=== PATIENT | male | born 1935 | race Caucasian/White ===

== ENCOUNTER 2022-05-21 11:39 | Emergency (ER) | payer MEDICARE, OTHER, SELFPAY ==
[2022-05-21] VITALS (18 sets, daily range): BP systolic 131–138; BP diastolic 63–80; PULSE 75–93; RESP 9–24; TEMP 36.9–37.1; O2SAT 95–99
--- NOTE | 2022-05-21 11:45 | RT.EKG_ITS ---
APPROVED REPORT Exam: Resting ECG Reason for Exam: SOB Patient Location: E HR:88 bpm ECG Measurements Heart Rate 88 AXIS [place] 183 P 51 QRSd 84 QRS 52 QT 335 T 42 QTc 406 Conclusion Sinus rhythm...normal P axis, V-rate 60- 99. Sinus. Normal axis. No STEMI. Artifact V5. I have reviewed and interpreted ECG and agree with software generated interpretation.
--- NOTE | 2022-05-21 12:45 | DI.RAD_ITS ---
Exam(s) XR PORTABLE CHEST AP EXAM: XR PORTABLE CHEST AP CLINICAL HISTORY: cough. TECHNIQUE: 2D digital imaging was performed. COMPARISON: No exams were available for comparison FINDINGS: Single AP portable view. Heart size is upper normal. The mediastinum is not widened. No infiltrates nor pleural effusions. Very subtle suggestion of possible small pneumothorax in the l eft lung base. No fractures. IMPRESSION: Subtle suggestion of possible very subtle left pneumothorax. Recommend nonportable single PA view as next step. DATA REPOSITORY: RADIATION DOSE DELIVERED: All CT scans at this facility use at least one of these dose optimization techniques: automated exposure control; mA and/or kV adjustment per patient size (includes targeted e xams where dose is matched to clinical indication); or iterative reconstruction.
--- NOTE | 2022-05-21 12:58 | NUR.NOTE ---
Nursing Note: PT INFO GIVEN TO CARE MANAGEMENT TO ESTABLISH CARE NEXT WEEK. JAYLENE, ED
--- NOTE | 2022-05-21 13:03 | W.ED.GENAD ---
Discharge Plan Disposition Patient Disposition: HOME Condition: Stable Discharge Details Clinical Impression: COVID-19 Primary Care Provider: Shantell,Local ED Provider: Tremaine Peraza Home Meds and New Rx's Prescriptions: Continued atorvastatin 10 mg Tablet 10 mg PO DAILY bisoprolol-hydrochlorothiazide 2.5-6.25 mg Tablet 1 tab PO DAILY finasteride 1 mg Tablet 1 mg PO DAILY Discharge Instructions Instructions: COVID-19 (Coronavirus Disease 2019) (ED) Additional Instructions: Paxlovid as directed. Do not take your atorvastatin while taking this medication, you may begin taking your atorvastatin again on the , 3 days after this medication ends. Please watch for new or worsening symptoms and return to the ER for any concerns. I have placed you on the care management list to help expedite outpatient primary care follow-up. Discharge Data Discharge Date/Time-TO BE ENTERED AT DEPARTURE: 05/21/22 15:25 Medical Decision Making This is an 86-year-old gentleman past with a history of hypertension, hyperlipidemia, presenting to the ER today for 3-day history of flulike symptoms. Clinically he appears well, nontoxic. Partner at home has similar symptoms that began 2 days prior. He reports chest heaviness yesterday but no pain or shortness of breath. Denies any cardiac history. While I do believe this likely to be COVID, flu, viral syndrome, etc. I will obtain routine screening laboratory values including a single EKG and troponin. Given the duration of his symptoms I do not believe that a delta troponin is necessary. Laboratory values reveal no evidence of leukocytosis. Electrolytes unremarkable, creatinine 0.8 with a GFR greater than 60. COVID positive. Discussed Paxlovid with patient and he would like to move forward. Ordered the medication and the pharmacy will review medication interactions. Portable portable chest x-ray read as no infiltrate or effusion but concern for potential pneumothorax, recommend additional films 2 view chest x-ray read as unremarkable. Clinically extremely suspicion for pneumothorax. Pharmacy called and stated that the patient should hold the atorvastatin for 3 days after he finishes his Paxlovid. Discussed this with patient. Will place the patient on the care management with help expedite local primary care provider as he is moving to the area. Standard discharge and return precautions were provided. Patient understands, is agreeable to this plan, and has no additional questions or concerns upon discharge. This documentation was generated using Dragon dictation system, please disregard any oddities of phrase or misspellings. Imaging Data Radiologic Study: Attestation: I personally reviewed and interpreted this imaging study as follows: Imaging: X-Ray Radiologist's impression: Exam(s) XR PORTABLE CHEST AP EXAM: XR PORTABLE CHEST AP CLINICAL HISTORY: cough. TECHNIQUE: 2D digital imaging was performed. COMPARISON: No exams were available for comparison FINDINGS: Single AP portable view. Heart size is upper normal. The mediastinum is not widened. No infiltrates nor pleural effusions. Very subtle suggestion of possible small pneumothorax in the left lung base. No fractures. IMPRESSION: Subtle suggestion of possible very subtle left pneumothorax. Recommend nonportable single PA view as next step. Radiologic Study #2: Attestation: I personally reviewed and interpreted this imaging study as follows: Imaging: X-Ray Radiologist's impression: Exam(s) XR CHEST 2V PA LATERAL EXAM: XR CHEST 2V PA LATERAL CLINICAL HISTORY: Covid +, ? pnuemothorax on portable. TECHNIQUE: 2D digital imaging was performed. COMPARISON: CR XR PORTABLE CHEST AP from 05/21/2022 FINDINGS: 2 views: Heart size is normal. The mediastinum is not widened. No infiltrates nor pleural effusions and there is no pneumothorax on this non portable view. Density in the right lung base is probably breast nipple. IMPRESSION: No acute pulmonary findings. Lab Data Lab results reviewed: Yes I reviewed the patient's lab results. Labs: Laboratory Tests Range/Units 05/21/22 05/21/22 05/21/22 12:33 13:05 13:05 WBC (4.4-10.8) 10^3/uL 5.98 RBC (4.36-5.78) 10^6/uL 4.11 L Hgb (13.5-17.5) g/dL 13.4 L Hct (40.0-50.0) % 39.4 L MCV (80-95) fL 96 H MCH (27.0-33.0) pg 32.6 MCHC (32.0-36.0) % 34.0 RDW (11.8-14.1) % 12.8 Plt Count (130-400) 10^3/uL 162 MPV (8.0-11.0) fL 9.5 Immature Gran % 0.2 Neutrophils % 73.7 Lymphocytes % 9.9 Monocytes % 15.9 Eosinophils % 0.0 Basophils % 0.3 Nucleated RBC % (0.0-0.3) % 0.0 Absolute Neutrophils (1.2-6.7) 10^3/uL 4.41 Absolute Lymphocytes (1.2-3.4) 10^3/uL 0.59 L Absolute Monocytes (0.1-0.8) 10^3/uL 0.95 H Absolute Eosinophils (0.0-0.7) 10^3/uL 0.00 Absolute Basophils (0.0-0.2) 10^3/uL 0.02 Sodium (136-145) mmol/L 136 Potassium (3.5-5.1) mmol/L 3.7 Chloride (98-107) mmol/L 100 Carbon Dioxide (21.0-32.0) mmol/L 27.0 Anion Gap (3-11) mmol/L 9.0 BUN (7-18) mg/dL 21 H Creatinine (0.70-1.30) mg/dL 0.8 Estimated GFR/1.73 m2 (mL/min/1.73m2) >= 60.00 Glucose (74-106) mg/dL 108 H Calcium (8.5-10.1) mg/dL 9.5 Magnesium (1.8-2.4) mg/dL 1.8 Total Bilirubin (0.2-1.0) mg/dL 1.7 H AST (15-37) U/L 32 ALT (16-63) U/L 31 Alkaline Phosphatase (46-116) U/L 57 Troponin I (<or=60) ng/L < 50 Total Protein (6.4-8.2) g/dL 8.0 Albumin (3.4-5.0) g/dL 3.9 COVID-19 Source Not Applicable SARS-CoV-2 (PCR) (Negative) Positive A Influenza Type A (PCR) (Negative) Negative Influenza Type B (PCR) (Negative) Negative RSV (PCR) (Negative) Negative ECG Data Attestation: I personally reviewed and interpreted this ECG (s) as follows: Interpretation: Please see official report by Dr. Mcintosh. Sinus rhythm, ventricular rate of 88, no STEMI HPI General Mode of arrival: ambulatory. Date/Time Provider Initiated Documentation: 05/21/22 11:50. Limitations to Documentation: no limitations. Information obtained by: patient. HPI Narrative: This is an 86-year-old gentleman with a past medical history of hyperlipidemia, hypertension, relocating here with his partner from [place], presenting to the ER for 3-day history of dry cough, fatigue, body aches, reports he had a mild chest heaviness yesterday but no chest pain or shortness of breath. He states that he is fully immunized. He has not taken any [id number] medications for his symptoms. He denies headache, productive cough, abdominal pain, nausea or vomiting. Reports episode of diarrhea yesterday. Denies pain or swelling in his legs. He reports that his partner has somewhat similar symptoms, is also being evaluated, his partners symptoms began 2 days prior to his own symptoms. Related Data Home Medications Medication Instructions Recorded Confirmed atorvastatin 10 mg tablet 10 mg PO DAILY 05/21/22 05/21/22 bisoprolol 2.5 1 tab PO DAILY 05/21/22 05/21/22 mg-hydrochlorothiazide 6.25 mg tablet finasteride 1 mg tablet 1 mg PO DAILY 05/21/22 05/21/22 Allergies Allergy/AdvReac Type Severity Reaction Status Date / Time No Known Allergies Allergy Unverified 05/21/22 11:58 General Stated Complaint: GenMedical DEBBIE: 3 Review of Systems Constitutional Constitutional: Reports fatigue, Denies fever(s) and Denies headache(s) ENT Ears, Nose, Mouth, and Throat: Denies headache(s) and Denies sore throat Cardiovascular Cardiovascular: Denies chest pain and Denies dyspnea Respiratory Respiratory: Reports cough and Denies dyspnea Gastrointestinal Gastrointestinal: Denies abdominal pain, Reports diarrhea, Denies nausea and Denies vomiting Musculoskeletal Musculoskeletal: Reports myalgias Integumentary/Breasts Skin/Breast: Denies rash Neurologic Neurologic: Denies headache(s) Endocrine Endocrine: Reports fatigue PFSH All Active Problems COVID-19 (Acute) Social History Smoking/Tobacco Use Status: Never Smoking risk assessment performed?: Yes Alcohol Intake: current Alcohol Intake frequency: holidays/special occasions only Drug use: Never Substance use type: does not use Do you feel safe at home: Yes Do you feel safe in your relationship?: Yes Exam Const General: cooperative, healthy appearing, comfortable and no acute distress Orientation: alert and awake [facility] Head: normal to inspection, normocephalic and atraumatic Face and sinus: normal facial exam Mouth: moist mucous membranes Throat: posterior oropharynx normal Eyes General: appearance normal, both eyes and all related structures Conjunctivae: conjunctivae normal Neck Neck: normal visual inspection, full ROM, no meningeal signs, trachea midline and supple Resp Effort & Inspection: normal respiratory effort, able to speak in complete sentences and cough Quality of cough: dry (mild) Auscultation: clear to auscultation bilaterally Cardio Rate: regular rate Rhythm: regular rhythm GI Palpation: soft and nontender Back/Spine/Pelvis Back: No back tenderness Skin General skin exam: no rashes or lesions noted Neuro General: patient alert, patient awake, moves all extremities and no focal motor deficits Cognition: normal cognition Speech: speech normal Gait: normal gait Motor: muscle tone normal throughout Sensory Exam: no sensory deficits noted Extrem General: normal to inspection, full ROM, capillary refill normal, no pedal edema and no calf tenderness Psych Appearance: grossly normal Mental Status: mental status grossly normal Course Vital Signs Vital signs: Vital Signs Temperature 36.9 C 05/21/22 11:45 Pulse 77 05/21/22 11:45 Respiratory Rate 18 05/21/22 11:45 Blood Pressure 131/80 05/21/22 11:45 Pulse Oximetry 99 05/21/22 11:45 Temperature 37.1 C 05/21/22 12:51 Temperature Source Oral 05/21/22 12:51 Pulse 77 05/21/22 11:45 Respiratory Rate 18 05/21/22 11:45 Respiratory Effort Non-Labored 05/21/22 12:26 Respiratory Depth Normal 05/21/22 12:26 Respiratory Pattern Normal 05/21/22 12:26 Blood Pressure 131/80 05/21/22 11:45 Blood Pressure Position Sitting 05/21/22 11:45 Pulse Oximetry 99 05/21/22 11:45 Oxygen Delivery Method Room Air 05/21/22 11:45 Oxygen Flow Rate 0 05/21/22 11:45
[2022-05-21 13:15] LABS: Abs Immature Grans 0.01 10^3/uL (0.0-0.06); Absolute Basophil Count 0.02 10^3/uL (0.0-0.2); Absolute Lymphocyte Count 0.59 10^3/uL (1.2-3.4); Absolute Monocyte Count 0.95 10^3/uL (0.1-0.8); Absolute Neutrophil Count 4.41 10^3/uL (1.2-6.7); Basophils % 0.3; HCT 39.4 % (40.0-50.0); HGB 13.4 g/dL (13.5-17.5); Immature Grans % 0.2; Lymphocytes % 9.9; MCH 32.6 pg (27.0-33.0); MCV 96 fL (80-95); MPV 9.5 fL (8.0-11.0); Monocytes % 15.9; Neutrophils % 73.7; Platelet Count 162 10^3/uL (130-400); RBC 4.11 10^6/uL (4.36-5.78); RDW 12.8 % (11.8-14.1); RDW-SD 45.3 fL; WBC 5.98 10^3/uL (4.4-10.8)
[2022-05-21 13:22] LABS: Influenza A PCR Negative (Negative); Influenza B PCR Negative (Negative); RSV PCR Negative (Negative)
[2022-05-21 13:25] LABS: COVID-19 PCR Positive (Negative)
[2022-05-21 13:33] LABS: ALT 31 U/L (16-63); AST 32 U/L (15-37); Albumin 3.9 g/dL (3.4-5.0); Alkaline Phosphatase 57 U/L (46-116); BUN 21 mg/dL (7-18); Bilirubin, Total 1.7 mg/dL (0.2-1.0); CREATININE 0.8 mg/dL (0.70-1.30); Calcium 9.5 mg/dL (8.5-10.1); Chloride 100 mmol/L (98-107); Glucose 108 mg/dL (74-106); Magnesium 1.8 mg/dL (1.8-2.4); Potassium 3.7 mmol/L (3.5-5.1); Sodium 136 mmol/L (136-145); Troponin I < 50 ng/L (<or=60)
--- NOTE | 2022-05-21 14:15 | DI.RAD_ITS ---
Exam(s) XR CHEST 2V PA LATERAL EXAM: XR CHEST 2V PA LATERAL CLINICAL HISTORY: Covid +, ? pnuemothorax on portable. TECHNIQUE: 2D digital imaging was performed. COMPARISON: CR XR PORTABLE CHEST AP from 05/21/2022 FINDINGS: 2 views: Heart size is normal. The mediastinum is not widened. No infiltrates nor pleural effusions and there is no pneumothorax on this non portable view. Density in the right lung base is probably breast nipple. IMPRESSION: No acute pulmonary findings. DATA REPOSITORY: RADIATION DOSE DELIVERED:
--- NOTE | 2022-05-21 14:38 | NUR.NOTE ---
Gave pt. first dose of paxlovid, gave instructions to take evening dose later this night. Instructed pt. to not take Atorvastatin for 8 days. Nursing Note:
--- NOTE | 2022-05-22 10:57 | CMACTNOTE_ITS ---
- If Service Date Differs Date of service: 05/22/22 Time of Service: 10:57 Care Management Activity Note Sean is seen in the ED for Covid-19. At the request of ED provider, MARYBETH coordinates a referral to JAYLENE West, of [facility], on-call provider, to assist Sean in obtaining a follow up appointment and in establishing care with a local PCP. He has Medicare for insurance.
== END 2022-05-21 15:25 | disposition home or self-care (01) ==
PROVIDERS: Emergency Provider Physician Assistant
DX: U07.1 COVID-19 (principal); R06.02 Shortness of breath
CPT/HCPCS: 36415; 80053; 87637; 93005; 99283; 99284; 71045; 71046; 83735; 84484; 85025; 93010

== ENCOUNTER 2023-08-10 17:18 | Outpatient (REF) | payer MEDICARE, SELFPAY ==
[2023-08-10 19:06] LABS: ALT 45 U/L (16-63); AST 33 U/L (15-37); Albumin 4.2 g/dL (3.4-5.0); Alkaline Phosphatase 74 U/L (46-116); Anion Gap 10.3 mmol/L (3-11); BUN 27 mg/dL (7-18); Bilirubin, Total 1.2 mg/dL (0.2-1.0); CO2 27.7 mmol/L (21.0-32.0); Calcium 10.2 mg/dL (8.5-10.1); Calculated LDL 75 mg/dL (<100); Chloride 100 mmol/L (98-107); Cholesterol 173 mg/dL (<200); Glucose 146 mg/dL (74-106); HDL Cholesterol 54 mg/dL (40-60); Potassium 3.7 mmol/L (3.5-5.1); Sodium 138 mmol/L (136-145); Total Protein 8.4 g/dL (6.4-8.2); Triglyceride 220 mg/dL (<150)
== END 2023-08-10 17:19 | disposition home or self-care (01) ==
LOC: NCHCN 17:18
PROVIDERS: Visit Provider Physician Assistant Medical
DX: I10 Essential (primary) hypertension (principal); E78.5 Hyperlipidemia, unspecified; N40.0 Benign prostatic hyperplasia without lower urinary tract symptoms; Z12.5 Encounter for screening for malignant neoplasm of prostate
CPT/HCPCS: 80053; 80061; 84153

== ENCOUNTER 2023-11-30 13:38 | Emergency (ER) | payer MEDICARE, OTHER, SELFPAY ==
[2023-11-30] VITALS (42 sets, daily range): BP systolic 104–139; BP diastolic 40–77; PULSE 58–100; RESP 14–22; TEMP 36.4; O2SAT 96
--- NOTE | 2023-11-30 13:30 | RT.EKG_ITS ---
APPROVED REPORT Exam: Resting ECG Reason for Exam: unresponsive episode Patient Location: E HR:59 bpm ECG Measurements Heart Rate 59 AXIS [place] 228 P 22 QRSd 91 QRS 52 QT 400 T 53 QTc 396 Conclusion Sinus bradycardia...rate< 60 Prolonged FL interval...FL >220, V-rate 50- 90
--- NOTE | 2023-11-30 13:45 | DI.CT_ITS ---
Exam(s) CT HEAD - STROKE PROTOCOL EXAM: CT HEAD - STROKE PROTOCOL CLINICAL HISTORY: aphasia, dysarthria. TECHNIQUE: Imaging Protocol: Axial computed tomography images with coronal and sagittal reformatted images were created and reviewed COMPARISON: CR XR CHEST 2V PA LATERAL from 05/21/2022 FINDINGS: There are no skull fractures. There is a post inflammatory retention cyst in the posterior aspect of the right maxillary sinus and there is also mucosal thickening in the right sphenoid sinus. There is no evidence of intracranial hemorrhage, mass effect, or shift of midline structures. There are no extra-axial fluid collections. The ventricles are not enlarged or shifted and there is no blo od within the ventricular system nor within the basal cisterns. IMPRESSION: No acute intracranial findings on this noninfused CT scan of the brain. sinus disease as above. Called by myself to ER physician RADIATION DOSE DELIVERED: 807.43mGy.cm Total DLP DATA REPOSITORY: All CT scans at this facility are submitted to the National Radiology Data Registry (NRDR) Dose Index Registry (DIR) with the [employer] ([employer]). RADIATION OPTIMIZATION: All CT scans at this facility use at least one of these dose optimization te chniques: automated exposure control; mA and/or kV adjustment per patient size (includes targeted exa ms where dose is matched to clinical indication); or iterative reconstruction.
--- NOTE | 2023-11-30 14:01 | ED.GENADUL_ITS ---
HPI General Date/Time Provider Initiated Documentation: 11/30/23 13:46 . HPI Narrative: 88 year-old male presents to ED today by EMS with a chief complaint of possible altered mentation with onset around 1240. Patient became unresponsive while awake, had some fluttering eyes, and was having difficulty speaking with his , having word-salad type responses. Quality described as word salad, not acting himself, doesn't remember events, no radiation to chest pain, shortness of breath, fevers, nausea/vomiting/diarrhea, patient endorses no cardiac history- the patients states they did have a very emotional morning while having to euthanize their dog, and there was an unexpected in the family as well. Severity is described as unable to quantify. Palliating factors include nothing specific. Provoking factors include nothing specific. Patient not anticoagulated. Related Data Home Medications Medication Instructions Recorded Confirmed atorvastatin 10 mg tablet 10 mg PO DAILY 05/21/22 11/30/23 bisoprolol 2.5 1 tab PO DAILY 05/21/22 11/30/23 mg-hydrochlorothiazide 6.25 mg tablet finasteride 1 mg tablet 1 mg PO DAILY 05/21/22 11/30/23 Allergies Allergy/AdvReac Type Severity Reaction Status Date / Time No Known Allergies Allergy Unverified 11/30/23 13:58 General Stated Complaint: CVA/TIA DEBBIE: 2 Review of Systems All systems reviewed & are unremarkable except as noted in HPI and below PFSH All Active Problems (Updated 11/30/23 @ 15:57 by JOCELYNN Churchill) Cerebrovascular accident (Chronic) COVID-19 (Acute) Social History Smoking/Tobacco Use Status: Never Smoking risk assessment performed?: Yes Alcohol Intake: current Alcohol Intake frequency: holidays/special occasions only Drug use: Never Substance use type: does not use Do you feel safe at home: Yes Do you feel safe in your relationship?: Yes Exam Narrative Exam Narrative: GENERAL APPEARANCE: Well-nourished, non-toxic, awake and alert, atraumatic, no acute distress. SKIN: Warm, pink, dry, intact, without rashes/lesions/ulcerations. HEAD: Normocephalic, atraumatic, normal hair distribution for gender/age. EYES: Pupils PERRLA, EOMs intact without nystagmus, normal conjunctiva, no exudates on lids/lashes. ENT: Nares patent, no circumoral cyanosis, no facial swelling NECK: Supple, trachea midline, painless cervical ROM. LUNGS/CHEST: Lungs CTA bilaterally- no rhonchi/rales/wheezes diffusely, non- labored respirations, normal A/P diameter, symmetrical expansion, no chest wall deformity HEART (CV/PV): Regular rate and rhythm without murmur, no peripheral edema, no JVD, no carotid bruit. ABDOMEN: Soft, non-distended, no guarding, no tenderness. MSK: Normal ROM, no swelling/deformity to bilateral UEs or LEs, moving all extremities without weakness, no cyanosis, spine midline without tenderness, normal curvature. NEURO: Mental Status AAOx4 - alert to person, place, giving inappropriate responses identifying objects, following commands, some word-salad No facial droop, no forehead involvement, has dysmetria with finger-nose finger with L hand, has horizontal gaze palsy looking L with bilateral eyes, visual bucio intact Motor: No focal weakness - strength 5/5 in bilateral UEs and LEs, proximal and distal, symmetric. Sensory: sensation intact to light touch globally. Gait NT on arrival. NIH: 8 PSYCH: euthymic, cooperative, pleasant, appropriate speech Course Vital Signs Vital signs: Vital Signs Temperature 36.4 C L 11/30/23 13:40 Pulse 58 L 11/30/23 13:40 Respiratory Rate 15 11/30/23 13:40 Pulse Oximetry 96 11/30/23 13:40 Temperature 36.4 C L 11/30/23 13:40 Temperature Source Tympanic 11/30/23 13:40 Pulse 58 L 11/30/23 13:40 Respiratory Rate 15 11/30/23 13:40 Respiratory Effort Normal, Non-Labored 11/30/23 13:55 Blood Pressure Position Supine 11/30/23 13:40 Pulse Oximetry 96 11/30/23 13:40 Oxygen Delivery Method Room Air 11/30/23 13:40 Oxygen Flow Rate 0 11/30/23 13:40 Medical Decision Making This dictation utilizes [id number] dictation software and may contain unedited grammatical errors. 88 y/o M presents to ED today with a chief complaint of unresponsive but awake episode last known well at 1240 per patient's , had a very emotionally stressful morning. Having expressive aphasia and some ophthalmoplegia looking L horizontally, some dysmetria with L UE and inattention with tasks. Patient denies stroke history, denies cardiac history, no recent illnesses. Patients' medical history: Reports some unknown allergy that he has had to use EpiPen 3 times. Family and social history: lives at-home with , eats healthy. Pertinent exam findings / vital signs include NIH: 8, aphasia, inattention with tasks, some dysmetria L UE, benign cardiopulmonary status, benign abdomen, non- toxic. Differential / pathologies of concern include CVA, unlikely psychogenic episode or fugue statue from psychogenic stressors today, ICH. Diagnostic studies of: -CT Head wo Contrast ordered stat on arrival, CBC, CMP, Lipase, Lactate, CK, UA, UDS, Trop I, BNP, Ammonia, PT, PTT, lipase, magnesium, procalcitonin, TSH, CRP/ESR, EKG -EKG shows sinus bradycardia 59 bpm with P waves followed by narrow complex QRS, normal axis, poor R wave progression, likely early repolarization, normal QT QTc, prolonged LA interval -CT Head wo shows no ICH, ordering tPa for CVA -CTAs show no occlusive pathology. -CBC no leukocytosis, chronic anemia 13.2 Hgb -PTT 23.4 low, normal INR -Lactate 1.1 -PT shows no major electrolyte abnormalities, chronic bilirubin and BUN elevation at baseline -Ammonia level low -TSH elevated-FT4 wnl -UDS clean, UA shows no major signs of infection, micro is confirms Interventions of: -6.8mg bolus tPa administered at 1420 for likely stroke with NIH of 8. -remaining 61.8mg infusion started over 60 mins -patient improving with tPa, no more aphasia, NIH: 1 @ 1555 -Consulted [facility] [place] transfer, they state they may not be able to accept due to capacity -Page placed at [facility] as well ED Course/Assessment/Plan: 88-year-old male presents with a likely CVA with an NIH score of 8, his last known well was 1240, he received tPA at 1420 after confirming no intracranial hemorrhage with significant improvement of his NIH from 8-1, his labs showed no acute major abnormalities, I approached [facility] as well as [facility] neurology for transfer for stroke admission, patient was signed out to oncoming provider Tana Burch with callbacks pending for stroke admission. The likely onset of his stroke was around significant emotional stressors today including euthanasia of the family's dog as well as a in the family, vitals remaining stable after tPa administration. [facility] has no capacity for stroke admission. Patient signed out with pending [facility] Neuro consult for stroke admission to Ch[facility]. Disposition of Cerebrovascular Accident. Patient verbalized understanding of the plan and return to ED criteria and engaged in shared decision making. Medical Records Medical records reviewed: Yes I reviewed the patient's medical records. Imaging Data Radiologic Study: Imaging: CT Scan Radiologist's impression: EXAM: CT HEAD - STROKE PROTOCOL CLINICAL HISTORY: aphasia, dysarthria. TECHNIQUE: Imaging Protocol: Axial computed tomography images with coronal and sagittal reformatted images were created and reviewed COMPARISON: CR XR CHEST 2V PA LATERAL from 05/21/2022 FINDINGS: There are no skull fractures. There is a post inflammatory retention cyst in the posterior aspect of the right maxillary sinus and there is also mucosal thickening in the right sphenoid sinus. There is no evidence of intracranial hemorrhage, mass effect, or shift of midline structures. There are no extra-axial fluid collections. The ventricles are not enlarged or shifted and there is no blood within the ventricular system nor within the basal cisterns. IMPRESSION: No acute intracranial findings on this noninfused CT scan of the brain. sinus disease as above. Radiologic Study #2: Imaging: CT Scan Radiologist's impression: EXAM: CT BRAIN NECK CTA CLINICAL HISTORY: CVA, tPa already administered. TECHNIQUE: Imaging Protocol: Axial CT angiography was performed with multi- slice acquisition and multi-planar and/or 3D reconstructions. CONTRAST MATERIAL: Intravenous: Omnipaque 350 Contrast volume:structured data in ml COMPARISON: No exams were available for comparison FINDINGS: CTA Neck W: Aortic arch anatomy: The aortic arch anatomy is conventional and there is no significant stenosis at the origin of the great vessels off of the aortic arch. No intimal flap evident. Anterior circulation: Both common carotid arteries ascend with normal luminal diameters. There is no significant atherosclerotic disease at the right carotid bifurcation and proximal right ICA. There is mild calcified plaque on the lateral wall of the left carotid bifurcation and mild calcified plaque in the posterior wall of the proximal left ICA but without evidence of significant stenosis. The amount of narrowing is estimated at less than 10 percent. There is no dissection. Both internal carotid arteries are patent without stenosis in the upper neck and skull base. Posterior circulation: Both vertebral arteries originate in conventional fashion off of the subclavian arteries and there is no obvious stenosis at the origin of the vertebral arteries. Both vertebral arteries exhibit normal luminal diameters within the foramen transversarium. No evidence of intraluminal thrombus nor dissection of the vertebral arteries. Both vertebral arteries contribute to the formation of the basilar artery at the skull base. CTA Brain W: Anterior circulation: Both internal carotid arteries are patent in the skull base-carotid canals as well as within the cavernous sinuses. The supraclinoid aspects of the ICAs are patent. Both A1 segments are patent as are the anterior cerebral arteries and there is no evidence of aneurysm at the level of the anterior communicating artery. Both middle cerebral arteries are patent with no evidence of significant stenosis nor intraluminal thrombus. There also no aneurysms of these vessels. Posterior circulation: Basilar artery ascends in the midline with no evidence of significant stenosis nor dissection. Distally it gives off spit superior cerebellar arteries and above this level terminates as patent bilateral posterior cerebral arteries. Above this level the basilar artery terminates as patent bilateral posterior cerebral arteries. There is no evidence of aneurysm at the tip of the basilar artery nor elsewhere in the [id number]. CT BRAIN: There is no evidence of intracranial hemorrhage, mass effect, or shift of midline structures. There are no extra-axial fluid collections. Ventricles are not enlarged or shifted. There are no ring enhancing lesions in the brain and no abnormal meningeal enhancement. There is some periventricular hypodensity consistent with chronic small vessel disease. Also appears to be lacunar infarct in the anterior limb of the left internal capsule, nonhemorrhagic and age indeterminate. IMPRESSION: 1. Patent carotid arteries in the neck. No hemodynamically significant stenosis. Minimal calcified plaque at the left carotid bifurcation and proximal left ICA with less than 10 percent stenosis. 2. Patent vertebral arteries in the neck. 3. Patent intracranial arteries. No significant stenosis of the intracranial vessels nor intraluminal filling defects and there are no aneurysms evident. Also no evidence of vascular malformation. 4. There are no ring enhancing lesions in the brain and there is no abnormal meningeal enhancement. Lab Data Lab results reviewed: Yes I reviewed the patient's lab results. Labs: Laboratory Tests Range/Units 11/30/23 11/30/23 11/30/23 13:50 14:00 15:40 WBC (4.4-10.8) 10^3/uL 6.24 RBC (4.36-5.78) 10^6/uL 4.00 L Hgb (13.5-17.5) g/dL 13.2 L Hct (40.0-50.0) % 38.3 L MCV (80-95) fL 96 H MCH (27.0-33.0) pg 33.0 MCHC (32.0-36.0) % 34.5 RDW (11.8-14.1) % 11.9 Plt Count (130-400) 10^3/uL 202 MPV (8.0-11.0) fL 9.4 Immature Gran % 0.3 Neutrophils % 61.6 Lymphocytes % 25.2 Monocytes % 11.2 Eosinophils % 1.1 Basophils % 0.6 Nucleated RBC % (0.0-0.3) % 0.0 Absolute Neutrophils (1.2-6.7) 10^3/uL 3.84 Absolute Lymphocytes (1.2-3.4) 10^3/uL 1.57 Absolute Monocytes (0.1-0.8) 10^3/uL 0.70 Absolute Eosinophils (0.0-0.7) 10^3/uL 0.07 Absolute Basophils (0.0-0.2) 10^3/uL 0.04 ESR (0-20) mm/hr 8 PT (9.1-11.1) sec 10.4 INR (0.9-1.1) 1.0 APTT (23.6-32.8) sec 23.4 L VBG Lactate (0.6-1.4) mmol/L 1.1 Sodium (136-145) mmol/L 139 Potassium (3.5-5.1) mmol/L 3.9 Chloride (98-107) mmol/L 103 Carbon Dioxide (21.0-32.0) mmol/L 29.0 Anion Gap (3-11) mmol/L 7.0 BUN (7-18) mg/dL 22 H Creatinine (0.70-1.30) mg/dL 1.1 Est GFR (CKD-EPI 2020) (mL/min/1.73m2) 65.38 Glucose (74-106) mg/dL 144 H Calcium (8.5-10.1) mg/dL 9.6 Magnesium (1.8-2.4) mg/dL 1.9 Total Bilirubin (0.2-1.0) mg/dL 1.3 H AST (15-37) U/L 31 ALT (16-63) U/L 38 Alkaline Phosphatase (46-116) U/L 60 Ammonia (11-32) umol/L < 10 L Creatine Kinase (39-308) U/L 57 Troponin I (< or =60) ng/L < 50 C-Reactive Protein (0.0-0.3) mg/dL < 0.05 NT-Pro-B Natriuret Pep (<300) pg/mL 168 Total Protein (6.4-8.2) g/dL 7.7 Albumin (3.4-5.0) g/dL 3.8 Lipase (16-77) U/L 24 Procalcitonin ng/mL < 0.1 TSH (0.36-3.74) uIU/mL 5.36 H Free T4 (0.76-1.46) ng/dL 0.88 Urine Color (Yellow) Yellow Urine Clarity (Clear) Clear Urine pH (5-8) 6.0 Ur Specific Abbot (1.005-1.025) 1.010 Urine Protein (Negative) mg/dL 30 H Urine Ketones (Negative) mg/dL Negative Urine Blood (Negative) Negative Urine Nitrite (Negative) Negative Urine Bilirubin (Negative) Negative Urine Urobilinogen (Up to 0.2) mg/dL 0.2 Ur Leukocyte Esterase (Negative) Negative Urine RBC (0-2) HPF 0-2 Urine WBC (0-5) HPF Negative Ur Epithelial Cells (Negative) HPF Rare Urine Crystals (Negative) HPF Negative Urine Bacteria (Negative) HPF Negative Urine Mucus (Negative) Trace Ur Culture Indicated? No Urine Glucose (Negative) mg/dL Negative Urine Opiates Screen (Negative) Negative Urine Methadone Screen (Negative) Negative Ur Barbiturates Screen (Negative) Negative Ur Tricyclics Screen (Negative) Negative Ur Amphetamines Screen (Negative) Negative U Benzodiazepines Scrn (Negative) Negative Urine Cocaine Screen (Negative) Negative Ur THC Screen (Negative) Negative Quality:SDOH Health Related Social Needs: No Data to Display Discharge Plan Discharge Details Chief Complaint: CVA/TIA Clinical Impression: Cerebrovascular accident Primary Care Provider: Unknown,Unknown ED Provider: Rayo Cheney Home Meds and New Rx's Prescriptions: No Action atorvastatin 10 mg Tablet 10 mg PO DAILY bisoprolol-hydrochlorothiazide 2.5-6.25 mg Tablet 1 tab PO DAILY finasteride 1 mg Tablet 1 mg PO DAILY
[2023-11-30 14:08] LABS: Abs Immature Grans 0.02 10^3/uL (0.0-0.06); Absolute Basophil Count 0.04 10^3/uL (0.0-0.2); Absolute Eosinophil Count 0.07 10^3/uL (0.0-0.7); Absolute Lymphocyte Count 1.57 10^3/uL (1.2-3.4); Absolute Neutrophil Count 3.84 10^3/uL (1.2-6.7); Basophils % 0.6; Eosinophils % 1.1; HCT 38.3 % (40.0-50.0); HGB 13.2 g/dL (13.5-17.5); Immature Grans % 0.3; Lactate 1.1 mmol/L (0.6-1.4); Lymphocytes % 25.2; MCHC 34.5 % (32.0-36.0); MCV 96 fL (80-95); MPV 9.4 fL (8.0-11.0); Monocytes % 11.2; Neutrophils % 61.6; Platelet Count 202 10^3/uL (130-400); RDW 11.9 % (11.8-14.1); RDW-SD 41.9 fL; WBC 6.24 10^3/uL (4.4-10.8)
[2023-11-30 14:12] LABS: ESR 8 mm/hr (0-20)
--- NOTE | 2023-11-30 14:15 | DI.CT_ITS ---
Exam(s) CT BRAIN NECK CTA EXAM: CT BRAIN NECK CTA CLINICAL HISTORY: CVA, tPa already administered. TECHNIQUE: Imaging Protocol: Axial CT angiography was performed with multi-slice acquisition and mu lti-planar and/or 3D reconstructions. CONTRAST MATERIAL: Intravenous: Omnipaque 350 Contrast volume:structured data in ml COMPARISON: No exams were available for comparison FINDINGS: CTA Neck W: Aortic arch anatomy: The aortic arch anatomy is conventional and there is no significant stenosis at the origin of the great vessels off of the aortic arch. No intimal flap evident. Anterior circulation: Both common carotid arteries ascend with normal luminal diameters. There is no significant atherosclerotic disease at the right carotid bifurcation and proximal right I CA. There is mild calcified plaque on the lateral wall of the left carotid bifurcation and mild calcified plaque in the posterior wall of the proximal left ICA but without evidence of significant stenosis. The amount of narrowing is estimated at less than 10 percent. There is no dissection. Both interna l carotid arteries are patent without stenosis in the upper neck and skull base. Posterior circulation: Both vertebral arteries originate in conventional fashion off of the subclavian arteries and there is no obvious stenosis at the origin of the vertebral arteries. Both vertebral arteries exhibit normal luminal diameters within the foramen transversarium. No evidence of intraluminal thrombus nor dissection of the vertebral arteries. Both vertebral arteries contribute to the formation of the basilar artery at the skull base. CTA Brain W: Anterior circulation: Both internal carotid arteries are patent in the skull base-carotid canals as well as within the cave rnous sinuses. The supraclinoid aspects of the ICAs are patent. Both A1 segments are patent as are the anterior cer ebral arteries and there is no evidence of aneurysm at the level of the anterior communicating artery . Both middle cerebral arteries are patent with no evidence of significant stenosis nor intraluminal th rombus. There also no aneurysms of these vessels. Posterior circulation: Basilar artery ascends in the midline with no evidence of significant stenosis nor dissection. Dista lly it gives off spit superior cerebellar arteries and above this level terminates as patent bilatera l posterior cerebral arteries. Above this level the basilar artery terminates as patent bilateral posterior cerebral arteries. There is no evidence of aneurysm at the tip of the basilar artery nor elsewhere in the [id number] is. CT BRAIN: There is no evidence of intracranial hemorrhage, mass effect, or shift of midline structures. There are no extra-axial fluid collections. Ventricles are not enlarged or shifted. There are no ring enh ancing lesions in the brain and no abnormal meningeal enhancement. There is some periventricular hypodensity consistent with chronic small vessel disease. Also appears to be lacunar infarct in the anterior limb of the left internal capsule, nonhemorrhagic and age inde terminate. IMPRESSION: 1. Patent carotid arteries in the neck. No hemodynamically significant stenosis. Minimal calcified plaque at the left carotid bifurcation and proximal left ICA with less than 10 percent stenosis. 2. Patent vertebral arteries in the neck. 3. Patent intracranial arteries. No significant stenosis of the intracranial vessels nor intralumina l filling defects and there are no aneurysms evident. Also no evidence of vascular malformation. 4. There are no ring enhancing lesions in the brain and there is no abnormal meningeal enhancement. Called by myself to ER physician. RADIATION DOSE DELIVERED: 1,315.99mGy.cm Total DLP DATA REPOSITORY: All CT scans at this facility are submitted to the National Radiology Data Registry (NRDR) Dose Index Registry (DIR) with the [employer] ([employer]). RADIATION OPTIMIZATION: All CT scans at this facility use at least one of these dose optimization te chniques: automated exposure control; mA and/or kV adjustment per patient size (includes targeted exa ms where dose is matched to clinical indication); or iterative reconstruction.
[2023-11-30 14:28] LABS: PTT Activated 23.4 sec (23.6-32.8); Prothrombin Time 10.4 sec (9.1-11.1)
[2023-11-30 14:32] LABS: Ammonia < 10 umol/L (11-32)
[2023-11-30 14:37] LABS: ALT 38 U/L (16-63); AST 31 U/L (15-37); Albumin 3.8 g/dL (3.4-5.0); Alkaline Phosphatase 60 U/L (46-116); BUN 22 mg/dL (7-18); Bilirubin, Total 1.3 mg/dL (0.2-1.0); CREATININE 1.1 mg/dL (0.70-1.30); Calcium 9.6 mg/dL (8.5-10.1); Chloride 103 mmol/L (98-107); Estimated GFR 65.38 (mL/min/1.73m2); Glucose 144 mg/dL (74-106); Magnesium 1.9 mg/dL (1.8-2.4); Potassium 3.9 mmol/L (3.5-5.1); Sodium 139 mmol/L (136-145); Total Protein 7.7 g/dL (6.4-8.2); Troponin I < 50 ng/L (< or =60)
[2023-11-30 14:41] LABS: Creatine Kinase 57 U/L (39-308); Lipase 24 U/L (16-77); NT-proBNP 168 pg/mL (<300); TSH (W/Ref FT4) 5.36 uIU/mL (0.36-3.74)
[2023-11-30 14:42] LABS: C-Reactive Protein < 0.05 mg/dL (0.0-0.3)
[2023-11-30 14:53] LABS: Procalcitonin < 0.1 ng/mL
[2023-11-30 15:02] LABS: FREE T4 0.88 ng/dL (0.76-1.46)
[2023-11-30] MEDS: Omnipaque 350 MG/ML 100 ML BTL IJ (15:21)
[2023-11-30] MEDS: Normal Saline - Diluent 50 ML VIAL IV (15:22)
[2023-11-30 15:48] LABS: Bilirubin Negative (Negative); Blood Negative (Negative); Clarity Clear (Clear); Glucose Negative (Negative); Ketones Negative (Negative); Leukocyte Esterase Negative (Negative); Nitrite Negative (Negative); Urobilinogen 0.2 mg/dL (Up to 0.2)
[2023-11-30 15:57] LABS: Bacteria Negative HPF (Negative); C & S Indicated? No; Crystals Negative HPF (Negative); Epithelial Cells Rare HPF (Negative); Mucus Trace (Negative); RBC 0-2 HPF (0-2); WBC Negative HPF (0-5)
[2023-11-30 16:00] LABS: *AMPHETAMINES SCREEN URINE Negative (Negative); *BARBITURATES SCREEN URINE Negative (Negative); *BENZODIAZEPINES SCREEN URINE Negative (Negative); Cannabinoids THC Negative (Negative); Cocaine Screen,Urine Negative (Negative); METHADONE URINE SCREEN Negative (Negative); OPIATES URINE SCREEN Negative (Negative)
[2023-11-30 16:01] LABS: Tricyclic Antidepressants Negative (Negative)
--- NOTE | 2023-11-30 16:56 | ED.PROG_ITS ---
Date of service: 11/30/23 Time of Service: 16:56 Medical Decision Making Care assumed from provider (Micah CABEZAS) Please see their initial HPI, PE, and documentation. Discussed patient details and case and pending workup and disposition. Patient is hemodynamically stable, and alert and oriented. Upon re-examination, patient has no left sided weakness, denies headache or blurry vision, per family in room, patient has returned to 85% of his baseline. In short patient presented with CVA like symptoms including aphagia, gaze palsy and left sided weakness, which has since resolved after TPA administration @ 1640. At the time of signout awaiting Neurololgy consult and transfer request to [facility]. 1709: Discussed case with Dr. Gustafson, physician coordinator at [facility] he states he will contact the team at [facility] in hopes of accommodating the patient, he will call me back. 1744: Transfer center with [facility] on the phone, they are inquiring on code status, patient states he does want CPR, but No to intubation. Patient made a DNI. 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 1830: Transfer paperwork filled out accepting physician Dr. Chowdhury at [facility]. 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 Will inform patient and family on plan of care. EMS here for transport. Medical Records Medical records reviewed: Yes I reviewed the patient's medical records. Lab Data Lab results reviewed: Yes I reviewed the patient's lab results. Labs: Laboratory Tests Range/Units 11/30/23 11/30/23 11/30/23 13:50 14:00 15:40 WBC (4.4-10.8) 10^3/uL 6.24 RBC (4.36-5.78) 10^6/uL 4.00 L Hgb (13.5-17.5) g/dL 13.2 L Hct (40.0-50.0) % 38.3 L MCV (80-95) fL 96 H MCH (27.0-33.0) pg 33.0 MCHC (32.0-36.0) % 34.5 RDW (11.8-14.1) % 11.9 Plt Count (130-400) 10^3/uL 202 MPV (8.0-11.0) fL 9.4 Immature Gran % 0.3 Neutrophils % 61.6 Lymphocytes % 25.2 Monocytes % 11.2 Eosinophils % 1.1 Basophils % 0.6 Nucleated RBC % (0.0-0.3) % 0.0 Absolute Neutrophils (1.2-6.7) 10^3/uL 3.84 Absolute Lymphocytes (1.2-3.4) 10^3/uL 1.57 Absolute Monocytes (0.1-0.8) 10^3/uL 0.70 Absolute Eosinophils (0.0-0.7) 10^3/uL 0.07 Absolute Basophils (0.0-0.2) 10^3/uL 0.04 ESR (0-20) mm/hr 8 PT (9.1-11.1) sec 10.4 INR (0.9-1.1) 1.0 APTT (23.6-32.8) sec 23.4 L VBG Lactate (0.6-1.4) mmol/L 1.1 Sodium (136-145) mmol/L 139 Potassium (3.5-5.1) mmol/L 3.9 Chloride (98-107) mmol/L 103 Carbon Dioxide (21.0-32.0) mmol/L 29.0 Anion Gap (3-11) mmol/L 7.0 BUN (7-18) mg/dL 22 H Creatinine (0.70-1.30) mg/dL 1.1 Est GFR (CKD-EPI 2020) (mL/min/1.73m2) 65.38 Glucose (74-106) mg/dL 144 H Calcium (8.5-10.1) mg/dL 9.6 Magnesium (1.8-2.4) mg/dL 1.9 Total Bilirubin (0.2-1.0) mg/dL 1.3 H AST (15-37) U/L 31 ALT (16-63) U/L 38 Alkaline Phosphatase (46-116) U/L 60 Ammonia (11-32) umol/L < 10 L Creatine Kinase (39-308) U/L 57 Troponin I (< or =60) ng/L < 50 C-Reactive Protein (0.0-0.3) mg/dL < 0.05 NT-Pro-B Natriuret Pep (<300) pg/mL 168 Total Protein (6.4-8.2) g/dL 7.7 Albumin (3.4-5.0) g/dL 3.8 Lipase (16-77) U/L 24 Procalcitonin ng/mL < 0.1 TSH (0.36-3.74) uIU/mL 5.36 H Free T4 (0.76-1.46) ng/dL 0.88 Urine Color (Yellow) Yellow Urine Clarity (Clear) Clear Urine pH (5-8) 6.0 Ur Specific [place] (1.005-1.025) 1.010 Urine Protein (Negative) mg/dL 30 H Urine Ketones (Negative) mg/dL Negative Urine Blood (Negative) Negative Urine Nitrite (Negative) Negative Urine Bilirubin (Negative) Negative Urine Urobilinogen (Up to 0.2) mg/dL 0.2 Ur Leukocyte Esterase (Negative) Negative Urine RBC (0-2) HPF 0-2 Urine WBC (0-5) HPF Negative Ur Epithelial Cells (Negative) HPF Rare Urine Crystals (Negative) HPF Negative Urine Bacteria (Negative) HPF Negative Urine Mucus (Negative) Trace Ur Culture Indicated? No Urine Glucose (Negative) mg/dL Negative Urine Opiates Screen (Negative) Negative Urine Methadone Screen (Negative) Negative Ur Barbiturates Screen (Negative) Negative Ur Tricyclics Screen (Negative) Negative Ur Amphetamines Screen (Negative) Negative U Benzodiazepines Scrn (Negative) Negative Urine Cocaine Screen (Negative) Negative Ur THC Screen (Negative) Negative Quality:SDOH Health Related Social Needs: No Data to Display Critical Care Time Critical Care Time Critical Care Time: Yes Total Critical Care Time: 45 Attestation: I spent greater than 35 minutes addressing this patient's acute life threatening illness. This time was spent engaged in actions directly related to the patient's care. Failure to initiate these interventions would have likely resulted in clinically significant or life threatening deterioration in the patients condition. See previous documentation. Sign Out Sign Out Data: Sign Out Comment: CVA, pending [facility] stroke transfer, vs admit here. NIH was 8, resolved with tPa at 1420 Last updated by Rayo Cheney PA at 11/30/23 16:38 Discharge Plan Disposition Patient Disposition: Transfer-Acute Inpatient Care Specific Acute In Facility: [facility] Condition: Stable Discharge Details Clinical Impression: Cerebrovascular accident Primary Care Provider: Unknown,Unknown ED Provider: Burch,Chantelle Home Meds and New Rx's Prescriptions: No Action atorvastatin 10 mg Tablet 10 mg PO DAILY bisoprolol-hydrochlorothiazide 2.5-6.25 mg Tablet 1 tab PO DAILY finasteride 1 mg Tablet 1 mg PO DAILY
[2023-11-30 17:04] LABS: Troponin I < 50 ng/L (< or =60)
== END 2023-11-30 19:05 | disposition short-term general hospital (02) ==
PROVIDERS: Physician Assistant; Emergency Provider Registered Nurse Emergency
DX: R41.82 Altered mental status, unspecified (principal); I63.9 Cerebral infarction, unspecified; R47.01 Aphasia; R29.708 NIHSS score 8; Z79.899 Other long term (current) drug therapy
CPT/HCPCS: 00123; 36415; 70496; 70498; 80053; 80307; 82550; 83690; 84145; 85652; 93005; 96374; 99284; 70450; 81003; 81015; 82140; 83605; 83735; 83880; 84439; 84443; 84484; 85025; 85610; 85730; 86140; 93010; 99285; J2997; J3490

== ENCOUNTER 2024-05-15 15:06 | Outpatient (REF) | payer MEDICARE, OTHER, SELFPAY ==
[2024-05-15 17:17] LABS: ALT 36 U/L (16-63); AST 32 U/L (15-37); Alkaline Phosphatase 81 U/L (46-116); Anion Gap 9.3 mmol/L (3-11); BUN 21 mg/dL (7-18); Bilirubin, Total 0.99 mg/dL (0.2-1.0); CO2 26.7 mmol/L (21.0-32.0); Calcium 9.3 mg/dL (8.5-10.1); Chloride 102 mmol/L (98-107); FREE T4 0.97 ng/dL (0.76-1.46); Glucose 116 mg/dL (74-106); Potassium 3.8 mmol/L (3.5-5.1); Sodium 138 mmol/L (136-145); TSH 2.97 uIU/Ml (0.36-3.74)
[2024-05-15 17:29] LABS: Calculated LDL 89 mg/dL (<100); Cholesterol 166 mg/dL (<200); HDL Cholesterol 52 mg/dL (40-60); Triglyceride 128 mg/dL (<150)
== END 2024-05-15 15:07 | disposition home or self-care (01) ==
LOC: NCHCN 15:06
PROVIDERS: PCP Physician Assistant Medical; Visit Provider Physician Assistant Medical
DX: E78.5 Hyperlipidemia, unspecified (principal); R94.6 Abnormal results of thyroid function studies; R73.03 Prediabetes; Z86.73 Personal history of transient ischemic attack (TIA), and cerebral infarction without residual deficits
CPT/HCPCS: 80053; 80061; 83036; 84439; 84443

== ENCOUNTER 2025-08-20 09:26 | Outpatient (REF) | payer MEDICARE, OTHER, SELFPAY ==
[2025-08-20 16:44] LABS: ALT 30 U/L (16-63); AST 28 U/L (15-37); Albumin 4.0 g/dL (3.4-5.0); Alkaline Phosphatase 81 U/L (46-116); Anion Gap 9.3 mmol/L (3-11); BUN 27 mg/dL (7-18); Bilirubin, Total 0.9 mg/dL (0.2-1.0); CO2 27.7 mmol/L (21.0-32.0); Calcium 9.4 mg/dL (8.5-10.1); Calculated LDL 81 mg/dL (<100); Chloride 102 mmol/L (98-107); Cholesterol 157 mg/dL (<200); Estimated GFR 72.39 (mL/min/1.73m2); Glucose 113 mg/dL (74-106); HDL Cholesterol 53 mg/dL (>or=40); Potassium 4.4 mmol/L (3.5-5.1); Sodium 139 mmol/L (136-145); Total Protein 7.8 g/dL (6.4-8.2); Triglyceride 115 mg/dL (<150)
[2025-08-20 16:49] LABS: Hemoglobin A1C 5.7 % (<5.7)
[2025-08-21 23:32] LABS: PSA, Screening 4.6 ng/mL (<=6.5)
== END 2025-08-20 09:27 | disposition home or self-care (01) ==
LOC: NCHCN 09:26
PROVIDERS: PCP Physician Assistant Medical; Visit Provider Physician Assistant Medical
DX: R73.03 Prediabetes (principal); Z86.73 Personal history of transient ischemic attack (TIA), and cerebral infarction without residual deficits; E78.5 Hyperlipidemia, unspecified; N40.1 Benign prostatic hyperplasia with lower urinary tract symptoms
CPT/HCPCS: 80053; 80061; 84153; 83036